=== PATIENT | male | born 2000 | race African-American/Black ===

== ENCOUNTER 2024-09-03 11:03 | Emergency (ER) | payer BC, SELFPAY ==
[2024-09-03 11:39] VITALS: BP 113/73; PULSE 85; RESP 18; TEMP 36.7; O2SAT 100; BMI 23.4
--- NOTE | 2024-09-03 11:41 | ED.GENADULT ---
HPI - General Adult General Chief complaint: Skin/Abscess/Foreign Body Stated complaint: warts spreading Time Seen by Provider: 09/03/24 16:36 Source: patient and RN notes reviewed Mode of arrival: ambulatory Limitations: no limitations History of Present Illness ED Provider: Marilynn Morales PA-C HPI narrative: This is a 24-year-old male, with no known medical problems, who presents emergency department with concerns for rash on hands. Patient states that approximately 1 year ago he had a blister on his right dorsum of his hand, he states that this has increased in size. Denies any pain. He does report he tried to pop this region, which only revealed blood. He states that he noticed a small area next to it. He states that over the course of the last several months he has had multiple lumps develop on his hand. He does report 1 area on his palmar surface of his hand. He states that he was seen by a clinic and was told that these were warts however requested to get a 2nd opinion. He states that he is sexually active but has not had a new partner. He denies any fevers or chills. He is otherwise feeling well. No rashes in the genitalia region. No urinary symptoms. Denies using any topical agents to help get rid of these regions. He states that he was traveling to [place] at the end of the month, and is unable to follow-up with the associate professor of archaeology prior to leaving. No other complaints or concerns at this time. MD complaint: Rash Onset (ago): month(s) Associated symptoms: rash Treatments prior to arrival: none Related Data Previous Rx's ?Medication ?Instructions ?Recorded salicylic acid 26 % topical liquid 1 appl topical DAILY 4 weeks #10 mL 09/03/24 Allergies Allergy/AdvReac Type Severity Reaction Status Date / Time No Known Allergies Allergy Verified 09/03/24 11:45 Review of Systems Review of Systems: Yes all other systems are reviewed and are negative PMFSH Past Medical History Attestation statement: The following information was validated with the patient. Social History Social History Advance Directives: No Advance Directives Information Provided: Yes Physical Exam ED Vital Signs: Vital Signs - 24 hr 09/03/24 11:39 09/03/24 17:44 09/03/24 17:49 Temperature 98.1 F 97.5 F 97.5 F Pulse Rate 85 73 73 Respiratory Rate 18 14 14 Blood Pressure 113/73 113/75 113/75 Pulse Oximetry 100 98 98 Oxygen Delivery Method Room Air Room Air Room Air BMI result Body Mass Index 23.4 Const Other: General: Awake, alert, and oriented X3. No acute distress. HEENT: Normal inspection CVS: Normal heart rate and rhythm. Pulses normal. Respiratory: No respiratory distress Skin: See photo below Neuro: Oriented X 3. No motor deficit. No sensory deficit. Right hand, dorsum region, there is a nontender, nodular lesion noted overlying the 5th MCP, as well as the 3rd MCP. He does have a similar-appearing nodular lesion, noted to the palmar surface, no other rashes noted. No rashes noted to the plantar aspect. Course Course Course Narrative: This is a rapid medical exam performed by Liz Johnson NP: Additional HPI, ROS, PE not included below will be deferred to primary provider. Patient is a 24-year-old male presenting with complaint of multiple bumps to his hands. States began when he pinched his right hand in a door several months ago, began as a blood blister, and since then he has developed many more bumps to his hands, denies any on feet. Plan: [facility] Medical Decision Making Medical Decision Making MDM Narrative: This is a 24-year-old male who presents emergency department with complaints of lesions noted to bilateral hands. This has been ongoing for the last year. Started on his left dorsum of his hand, since progressed, and now has multiple lesions throughout his bilateral dorsum of his hands, he does have 1 lesion noted to the palmar surface of his right hand. Nontender. No surrounding erythema. On arrival, vital signs within normal limits. He is speaking in full sentences under no acute distress. No medical problems, no lesions noted to the plantar surface of bilateral feet. I had my attending physician, Dr. Alvarado, evaluate patient, this is likely a wart outbreak. Will treat with salicylic acid. We also jhony for syphilis, hepatitis, chlamydia, gonorrhea, HIV. Advised patient that we will call him if any of these are positive. He understands and agrees with plan. Patient stable for discharge Differential Diagnosis Differential Diagnoses: The differential diagnosis associated with the presentation includes Primary syphilis, secondary syphilis, contact dermatitis, HSV, verruca vulgaris, herpetic kin Lab Data [facility] Lab Attestation statement: I reviewed the patient's lab results. Mild leukopenia at 3.4, chemistry with no significant electrolyte derangement. Serology for syphilis, chlamydia, hepatitis, HIV, gonorrhea still pending. 09/03/24 13:14 09/03/24 13:14 Labs: Lab Results 09/03/24 09/03/24 Range/Units 13:14 15:32 WBC 3.4 L (4.8-10.8) X10*3/uL RBC 5.45 (4.60-5.80) X10*6/uL Hgb 15.4 (14.0-18.0) g/dl Hct 45.2 (42.0-52.0) % MCV 82.9 (80.0-98.0) fL MCH 28.3 (27.0-33.0) pg MCHC 34.1 (31.0-36.0) g/dl RDW 12.5 (11.0-16.0) % Plt Count 213 (160-400) X10*3/uL MPV 9.6 (9.4-12.4) fL Immature Gran % (Auto) 0.0 (0.0-0.4) % Neut % (Auto) 48.0 (45-73) % Lymph % (Auto) 43.0 H (20-40) % [place] % (Auto) 8.1 (2-11) % Eos % (Auto) 0.3 (0-4) % Baso % (Auto) 0.6 (0-2) % Lymph # (Auto) 1.5 (1.2-4.9) X10*3/uL [place] # (Auto) 0.3 (0.1-1.2) X10*3/uL Eos # (Auto) 0.0 (0.0-0.4) X10*3/uL Baso # (Auto) 0.0 (0.0-0.2) X10*3/uL Abs Immat Gran (auto) 0.00 (0.00-0.03) X10*3/uL Absolute Neuts (auto) 1.7 L (2.0-8.3) x10*3/uL Absolute Nucleated RBC 0.000 (0.0-0.012) X10*3/uL Nucleated RBC % (auto) 0.0 (0.0-0.2) /100WBC Sodium 140 (135-145) mmol/L Potassium 4.1 (3.3-5.1) mmol/L Chloride 107 (96-108) mmol/L Carbon Dioxide 30 H (22-29) mmol/L Anion Gap 7 L (12-20) BUN 12 (9-16) mg/dL Creatinine 0.82 (0.5-1.4) mg/dL Estim Creat Clear Calc 135.5 Estimated GFR > 60 Random Glucose 84 (60-115) mg/dL Calcium 9.2 (8.4-10.2) mg/dL Total Bilirubin 0.7 (0.0-1.0) mg/dL AST 31 (5-37) U/L ALT 18 (0-40) U/L Alkaline Phosphatase 57 (39-117) U/L Total Protein 7.3 (6.5-8.0) g/dL Albumin 4.5 (3.5-5.0) g/dL Chlam trachomat DNA PCR NOT DETECTED (Not Detect.) N.gonorrhoeae DNA (PCR) NOT DETECTED (Not Detect.) Discharge Plan Discharge Clinical Impression: Rash Patient Disposition: Home, Self-Care Instructions: Acute Rash (ED) Additional Instructions: You were seen in the ER due to a rash. Your blood work was reassuring. There is some testing that takes several days for it to get resulted, we will call you if any of these are positive. You likely have warts on your hand, please use salicylic acid for topical treatment. Soak your worsened warm water for 5 minutes. Dry area thoroughly. Apply salicylic acid to entire wart surface, allowed to dry, and in his by a 2nd time. Avoid contact with surrounding skin. You may continue this therapy once or twice daily. This may take up to 4-6 weeks for it to resolve. You may also need to be seen by a associate professor of archaeology for further management. If any new or worsening symptoms occur including but not limited to worsening rash, chest pain, shortness of breath, please seek emergent care. Prescriptions: New salicylic acid 26 % liquid 1 appl topical DAILY 28 Days Qty: 10 0RF Interventions: ED Discharge Assessment Last Done: 09/03/24 17:49 Discharge Date/Time: 09/03/24 17:50 Print Language: Italian
[2024-09-03 13:18] LABS: MANUAL DIFF FLAG NO
[2024-09-03 13:21] LABS: Basophils Percent Auto 0.6 % (0-2); Eosinophils Percent Auto 0.3 % (0-4); Hematocrit 45.2 % (42.0-52.0); Hemoglobin 15.4 g/dl (14.0-18.0); Lymphocytes Absolute Auto 1.5 X10*3/uL (1.2-4.9); Mean Corpuscular HGB Conc 34.1 g/dl (31.0-36.0); Mean Corpuscular Hemoglobin 28.3 pg (27.0-33.0); Mean Corpuscular Volume 82.9 fL (80.0-98.0); Mean Platelet Volume 9.6 fL (9.4-12.4); Monocytes Absolute Auto 0.3 X10*3/uL (0.1-1.2); Monocytes Percent Auto 8.1 % (2-11); Neutrophils Absolute Auto 1.7 x10*3/uL (2.0-8.3); Platelet Count 213 X10*3/uL (160-400); Red Blood Count 5.45 X10*6/uL (4.60-5.80); Red Cell Distribution Width 12.5 % (11.0-16.0); White Blood Count 3.4 X10*3/uL (4.8-10.8)
[2024-09-03 13:38] LABS: Alanine Aminotransferase 18 U/L (0-40); Albumin Level 4.5 g/dL (3.5-5.0); Alkaline Phosphatase 57 U/L (39-117); Anion Gap 7 (12-20); Aspartate Amino Transferase 31 U/L (5-37); Bilirubin Total 0.7 mg/dL (0.0-1.0); Blood Urea Nitrogen 12 mg/dL (9-16); Calcium 9.2 mg/dL (8.4-10.2); Carbon Dioxide 30 mmol/L (22-29); Chloride 107 mmol/L (96-108); Creatinine Clr Calc Pharmacy 135.5; Estimated Glomerular Filt Rate > 60; Glucose Random 84 mg/dL (60-115); Potassium 4.1 mmol/L (3.3-5.1); Sodium 140 mmol/L (135-145); Total Protein 7.3 g/dL (6.5-8.0)
[2024-09-03 17:44] VITALS: BP 113/75; PULSE 73; RESP 14; TEMP 36.4; O2SAT 98
[2024-09-03 17:49] VITALS: BP 113/75; PULSE 73; RESP 14; TEMP 36.4; O2SAT 98
[2024-09-03 18:15] LABS: CT PCR NOT DETECTED (Not Detect.); NG PCR NOT DETECTED (Not Detect.)
[2024-09-04 07:59] LABS: Syphilis Screen Nonreactive (Nonreactive)
[2024-09-04 09:15] LABS: HBS Num1 1.53 mIU/mL (0-7.99); HBc Num1 0.15 S/CO (0.00-0.79); HBsAGNum1 0.49 S/CO (0.00-0.99); HIV Num 1 1.04 S/CO (0.00-0.99); Hepatitis B Core Antibody Nonreactive (Nonreactive); Hepatitis B Surface Antigen Negative (Negative); ~HepC Num1 0.07 S/CO (0.00-0.79); ~Hepatitis A Antibody IgM Nonreactive (Nonreactive); ~Hepatitis B Surface Antibody NONREACTIVE (Nonreactive); ~Hepatitis C Antibody Nonreactive (Nonreactive)
[2024-09-04 10:43] LABS: HIV AB/AG Nonreactive (Nonreactive); HIV Num 2 0.05 S/CO; HIV Num 3 0.05 S/CO
== END 2024-09-03 17:50 | disposition home or self-care (01) ==
PROVIDERS: Registered Nurse Emergency; Emergency Provider Emergency Medicine
DX: R21 Rash and other nonspecific skin eruption (principal)
CPT/HCPCS: 36415; 80053; 85025; 86704; 86706; 86709; 86780; 86803; 87340; 87389; 87491; 87591; 99283